=== PATIENT | female | born 1980 | race Caucasian/White ===

== ENCOUNTER 2017-03-01 17:50 | Observation (INO) | payer OTHER ==
[~2017-03-01] VITALS: Ht 160 cm; Wt 77.6 kg
[2017-03-01] MEDS ORDERED: METF-478 PO (18:34)
[2017-03-01 19:09] VITALS: BP 113/69
[2017-03-01 19:10] LABS: BILIRUBIN,URINE NEGATIVE (NEGATIVE); KETONES,URINE NEGATIVE (NEGATIVE); LEUKOCYTE ESTERASE ,URINE NEGATIVE (NEGATIVE); NITRITE,URINE NEGATIVE (NEGATIVE); PH,URINE 5 (5-9); PROTEIN,URINE NEGATIVE (NEGATIVE); UROBILINOGEN,URINE NORMAL (NORMAL)
--- NOTE | 2017-03-01 19:31 | History & Physical-OB/GYN ---
History of Present Illness History of Present Illness Reason for visit/HPI This is a 36 year old at approximately 17 weeks of gestation based on LMP of 10/28/16. I was called today by Dr. Marrufo due to patient presenting at [facility] for first visit She is reportedly a type II diabetic that has just moved to [place] from [place] to escape from a relationship. Mother lives in [place]. Blood sugar in office was 333 with 1+ ketones. Dr. Marrufo was questioning hospitalization due to blood sugars vs outpatient management. Patient reports a diagnosis of insulin resistance and PCOS in 2000 (age 20). States she was seeing an dual rate dealer at that time and was is a study of some sort. Many medications were tried and they ended up with metformin. States that she has tried other medications. Metformin is hard on her stomach. She states that they told her at that time she was a type II diabetic. States she has never really been told how to correctly or when to check her blood sugars though she does have a glucometer. States she may check her blood sugars twice a week at random times and blood sugars have been 200-400s. States she is taking metformin but has not taken today. States the diet she follows is "whatever I want to eat". She was to have come directly from [place] but didn't arrive until nearly 7 pm. States she ate at 5:30 at [employer]. Her mother states that the she wanted to stop for an ice cream cone but that they discussed that was probably not appropriate. She had an ED visit within the past year and blood sugar was in the 800s. States she hasn't had any diabetic teaching. She miscarried in March (first ) and was told she was 12-14 weeks (didn' t know she was ) but did not have a dilation and curettage. And per some hospital discharge paperwork she brought with her her blood sugar was only 3-4000. She states she feels well. Has had some nausea but has nausea with metformin normally. States no movement but maybe "gas" movement. No labs, no vitamin. A1C at [facility] was 10%. Has had pap and genital cultures done. Did have labs today at [facility] but haven't sent them yet. She has a history of drug usage. Previous had been on oxycodone for an injury and became addicted then was on methadone to get off the oxycodone. 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 States the FOB is still in this lifestyle. States she is the happiest she has been in awhile. Date of Admission 03/01/17 I consulted on this patient on 03/01/17 19:26 Attending Physician Tomas Chaidez DO Admitting Physician Tomas Chaidez DO Consult Allergies and Home Medications Allergies Coded Allergies: No Known Drug Allergies (Unverified , 03/01/17) Home Medications Metformin HCl 500 Mg Tab.er.24, 500 MG PO BID, (Reported) Past [id number]-Frnmve Hx Patient Social History Marrital Status: single Number of Children: 0 Number of living children: 0 Employed/Student: unemployed Alcohol Use: Past History Recreational Drug Use: Yes Drug of Choice: methamphetamine, marijuana, heroin Smoking Status: Former Smoker Type Used: Cigarettes Physical Abuse Screen: No Sexual Abuse: No Recent Foreign Travel: No Contact w/other who traveled: No Recent Infectious Disease Expo: No Immunizations Up To Date Tetanus Booster (TDap): Unknown Respiratory Hx Respiratory Disorders: No Cardiovascular Hx Cardiovascular Disorders: No Neurological Hx Neurological Disorders: No Reproductive System : Yes Hx : 2 Sexually Transmitted Disease: Yes (reports history of PID) HIV/AIDS: No Female Reproductive Disorders: Pelvic Inflammatory Dis Genitourinary Hx Genitourinary Disorders: No Gastrointestinal Hx Gastrointestinal Disorders: No Musculoskeletal Hx Musculoskeletal Disorders: No Endocrine Hx Endocrine Disorders: Yes Endocrine Disorders: Diabetes, Non-Insulin dep (poor compliance) HEENT HX ENT Disorders: Yes Loss of Vision: Denies Cancer Hx Cancer: No Psychosocial Hx Psychiatric Problems: No Integumentary HX Skin/Integumentary Disorder: Yes Blood Transfusions Hx Blood Disorders: No Reviewed Nursing Assessment Reviewed/Agree w Nursing PMH: Yes Family Medical History Significant Family History: Diabetes, Hypertension Constitutional: no symptoms reported EENTM: no symptoms reported Respiratory: no symptoms reported Cardiovascular: no symptoms reported Gastrointestinal: nausea Genitourinary: no symptoms reported : Yes Expected Date of Delivery: Aug 04, 2017 LMP: Oct 28, 2016 Musculoskeletal: no symptoms reported Skin: no symptoms reported Psychiatric/Neurological: No Symptoms Reported All Other Systems Reviewed Negative Unless Noted: Yes Physical Exam Physical Exam Vital Signs Vital Signs Date Time Temp Pulse Resp B/P (MAP) Pulse Ox O2 Delivery O2 Flow Rate FiO2 03/02/17 06:12 98.4 69 16 81/43 97 Room Air 03/02/17 00:20 98.0 74 16 98/61 98 Room Air 03/01/17 21:00 98.7 77 16 104/68 97 Room Air 03/01/17 19:09 98.3 76 18 113/69 98 Room Air Capillary Refill : Labs Laboratory Tests 03/01/17 18:40: Urine Color YELLOW, Urine Clarity SLIGHTLY CLOUDY, Urine pH 5, Urine Specific [place] 1.025H, Urine Protein NEGATIVE, Urine Glucose (UA) 4+H, Urine Ketones NEGATIVE, Urine Nitrite NEGATIVE, Urine Bilirubin NEGATIVE, Urine Urobilinogen NORMAL, Urine Leukocyte Esterase NEGATIVE, Urine RBC (Auto) NEGATIVE, Urine RBC NONE, Urine WBC NONE, Urine Squamous Epithelial Cells 2-5, Urine Crystals NONE, Urine Bacteria NONE, Urine Casts NONE, Urine Mucus NEGATIVE, Urine Culture Indicated NO, Urine Opiates Screen NEGATIVE, Urine Oxycodone Screen NEGATIVE, Urine Methadone Screen NEGATIVE, Urine Propoxyphene Screen NEGATIVE, Urine Barbiturates Screen NEGATIVE, Ur Tricyclic Antidepressants Screen NEGATIVE, Urine Phencyclidine Screen NEGATIVE, Urine Amphetamines Screen NEGATIVE, Urine Methamphetamines Screen NEGATIVE, Urine Benzodiazepines Screen NEGATIVE, Urine Cocaine Screen NEGATIVE, Urine Cannabinoids Screen NEGATIVE 03/01/17 19:02: Glucometer 241H 03/01/17 19:25: White Blood Count 5.5, Red Blood Count 4.21L, Hemoglobin 12.7, Hematocrit 38, Mean Corpuscular Volume 90, Mean Corpuscular Hemoglobin 30, Mean Corpuscular Hemoglobin Concent 34, Red Cell Distribution Width 13.9, Platelet Count 141, Mean Platelet Volume 10.9H, Neutrophils (%) (Auto) 74, Lymphocytes (%) (Auto) 17 , Monocytes (%) (Auto) 9, Eosinophils (%) (Auto) 1, Basophils (%) (Auto) 0, Neutrophils # (Auto) 4.0, Lymphocytes # (Auto) 0.9L, Monocytes # (Auto) 0.5, Eosinophils # (Auto) 0.0, Basophils # (Auto) 0.0, Sodium Level 137, Potassium Level 4.0, Chloride Level 108H, Carbon Dioxide Level 21, Anion Gap 8, Blood Urea Nitrogen 8, Creatinine 0.67, Estimat Glomerular Filtration Rate > 60, BUN/ Creatinine Ratio 12, Glucose Level 232H, Calcium Level 8.5, Total Bilirubin 0.5 , Aspartate Amino Transf (AST/SGOT) 24, Alanine Aminotransferase (ALT/SGPT) 39, Alkaline Phosphatase 67, Total Protein 6.3L, Albumin 3.3, Thyroid Stimulating Hormone (TSH) 1.09, Free Thyroxine 0.74 03/01/17 20:01: Glucometer 178H 03/01/17 20:28: Blood Gas Puncture Site RIGHT RADIAL, Blood Gas Patient Temperature 98.9, Arterial Blood pH 7.42, Arterial Blood Partial Pressure CO2 33L, Arterial Blood Partial Pressure O2 103H, Arterial Blood HCO3 21L, Arterial Blood Total CO2 21.4 , Arterial Blood Oxygen Saturation 99, Arterial Blood Base Excess -3.3L, Rafael Test POSITIVE, Blood Gas Ventilator Setting NO, Blood Gas Inspired Oxygen ROOM AIR 03/02/17 06:05: Glucometer 124H General Appearance: No Apparent Distress Respiratory: Chest Non Tender, Lungs Clear Cardiovascular: Regular Rate, Rhythm Gynecology/General: Other (Pelvic exam not done as done at [facility]. Reports no discharge. FHT 150) Assessment/Plan Assessment and Plan 1. approximate 17 week IUP, 2. Hyperglycemia with probable history of Type II diabetes (gestational diabetes) 3. Non compliance with treatment 4. Advanced maternal age 5. History of IV Drug use 6. Possibly Hep C positive. States she was told in 2009 at a methadone clinic. Has never had complete workup or treatment. States that they told her was positive and that was it. 7/ A1C 10% Admit for diabetic instruction and institution of insulin. Will states with 0.8 U/kg in second trimester. Will adjust accordingly. As she presented after having eaten dinner, the insulin dosage may need to be adjusted. Will start sliding scale for coverage. Will start 2000 kcal ADA with snacks. Will have dietary meet with her tomorrow to discuss diabetic diet. She has never followed a diet. She does know how to check blood sugars but needs to have a regimen. Will start with fasting, ac and hs blood sugars. Will have diabetic teaching today. Discussed risks to with elevated A1C. High risk of anomaly (cardiac, cauda aquina syndrome, etc). Will get sono today for growth, dating, cervical length, etc, but will need level II sono and echo. In addition, discussed AMA and risks of preeclampsia/hypertension. No insurance coverage as of yet. discussed genetic screening soon. She is interested in this. Will do this at follow up appointment in the office. Will require referral to [facility] for co management of care. Started 24 hour urine. labs ordered. CMP, CBC, blood gas, et al, pending. discussed care and testing. Discussed Hepatitis C and will await the testing and will follow up on that. UDS today was negative. Problems: TOMAS CHAIDEZ DO Mar 01, 2017 19:31
[2017-03-01 19:38] LABS: BASOPHILS % (AUTO) 0 % (0-10); EOSINOPHILS % (AUTO) 1 % (0-10); LYMPHOCYTES # (AUTO) 0.9 X 10^3 (1.0-4.0); LYMPHOCYTES % (AUTO) 17 % (12-44); MEAN CORPUSCULAR HEMOGLOBIN 30 PG (25-34); MEAN CORPUSCULAR HGB CONC 34 G/DL (32-36); MEAN CORPUSCULAR VOLUME 90 FL (80-99); MEAN PLATELET VOLUME 10.9 FL (7.4-10.4); MONOCYTES # (AUTO) 0.5 X 10^3 (0.0-1.0); MONOCYTES % (AUTO) 9 % (0-12); NEUTROPHILS % (AUTO) 74 % (42-75); PLATELET COUNT 141 10^3/uL (130-400); RED BLOOD COUNT 4.21 10^6/uL (4.35-5.85); RED CELL DISTRIBUTION WIDTH 13.9 % (10.0-14.5); WHITE BLOOD COUNT 5.5 10^3/uL (4.3-11.0)
[2017-03-01 20:07] LABS: ALANINE AMINOTRANSFERASE 39 U/L (0-55); ALBUMIN 3.3 G/DL (3.2-4.5); ANION GAP 8 MMOL/L (5-14); ASPARTATE AMINO TRANSFERASE 24 U/L (5-34); BILIRUBIN,TOTAL 0.5 MG/DL (0.1-1.0); BLOOD UREA NITROGEN 8 MG/DL (7-18); BUN/CREATININE RATIO 12; CALCIUM 8.5 MG/DL (8.5-10.1); CARBON DIOXIDE 21 MMOL/L (21-32); CHLORIDE 108 MMOL/L (98-107); CREATININE SERUM 0.67 MG/DL (0.60-1.30); GFR ESTIMATED > 60; GLUCOSE 232 MG/DL (70-105); SODIUM 137 MMOL/L (135-145); TOTAL PROTEIN 6.3 G/DL (6.4-8.2)
[2017-03-01] MEDS ORDERED: ACETAMINOPHEN 500 MG TAB (TYLENOL) ONE (20:22)
[2017-03-01] MEDS: NS IV 1000 ML 1,000 ML IV SCH (20:22)
[2017-03-01 20:28] LABS: THYROID STIMULATING HORMONE 1.09 UIU/ML (0.35-4.94)
[2017-03-01] MEDS ORDERED: ACETAMINOPHEN 500 MG TAB (TYLENOL) PO PRN (20:30)
[2017-03-01 20:45] LABS: ABG BASE EXCESS -3.3 MMOL/L (-2.5-2.5); ABG HCO3 21 MMOL/L (23-27); ABG OXYGEN SATURATION 99 % (94-100); ABG PCO2 33 MMHG (35-45); ABG PH 7.42 (7.37-7.43); ABG PO2 103 MMHG (79-93); ABG TCO2 21.4 MMOL/L (21.0-31.0)
[2017-03-01 20:46] LABS: ALLENS TEST POSITIVE; PATIENT TEMP 98.9
[2017-03-01 21:00] VITALS: BP 104/68
[2017-03-01] MEDS: inSUlin ASPART (NovoLOG) 1 UNIT/0.01 ML (CHARGE PER UNIT) SC SCH (21:00)
[2017-03-01] MEDS: inSUlin NPH (NovoLIN N) 1 UNIT/0.01 ML (CHARGE PER UNIT) SQ SCH (21:00)
[2017-03-01] MEDS: metFORMIN XR 500 MG (GLUCOPHAGE XR) TAB PO SCH (22:29)
[2017-03-02 00:20] VITALS: BP 98/61
[2017-03-02] MEDS ORDERED: inSUlin NPH (NovoLIN N) 1 UNIT/0.01 ML (CHARGE PER UNIT) SQ ONE (06:00)
[2017-03-02] MEDS: NS IV 1000 ML 1,000 ML IV SCH ×2 (06:11→16:13)
[2017-03-02 06:12] VITALS: BP 81/43
[2017-03-02] MEDS: inSUlin ASPART (NovoLOG) 1 UNIT/0.01 ML (CHARGE PER UNIT) SC SCH ×5 (06:47→16:36)
[2017-03-02 08:00] VITALS: BP 106/64
--- NOTE | 2017-03-02 08:13 | Progress Note-Standard ---
Standard Progress Note Progress Notes/Assess & Plan Date Seen 03/02/17 Assess & Plan/Chief Complaint HD#2 Pt denies complaints Not feeling movement, no LOF VB CTX No hypoglycemia Very happy with her FSBS this AM as reports it has not been < 200 recently O: VS - Last 72 Hours, by Label 03/01/17 03/01/17 03/02/17 03/02/17 19:09 21:00 00:20 06:12 Temp 98.3 98.7 98.0 98.4 Pulse 76 77 74 69 Resp 18 16 16 16 B/P (MAP) 113/69 104/68 98/61 81/43 Pulse Ox 98 97 98 97 O2 Delivery Room Air Room Air Room Air Room Air Gen: NAD Laboratory Tests Test 03/01/17 18:40 03/01/17 19:02 03/01/17 19:25 03/01/17 20:01 Range/Units Urine Color YELLOW Urine Clarity SLIGHTLY CLOUDY Urine pH 5 5-9 Urine Specific [place] 1.025 H 1.016-1.022 Urine Protein NEGATIVE NEGATIVE Urine Glucose (UA) 4+ H NEGATIVE Urine Ketones NEGATIVE NEGATIVE Urine Nitrite NEGATIVE NEGATIVE Urine Bilirubin NEGATIVE NEGATIVE Urine Urobilinogen NORMAL NORMAL MG/DL Urine Leukocyte Esterase NEGATIVE NEGATIVE Urine RBC (Auto) NEGATIVE NEGATIVE Urine RBC NONE /HPF Urine WBC NONE /HPF Urine Squamous Epithelial Cells 2-5 /HPF Urine Crystals NONE /LPF Urine Bacteria NONE /HPF Urine Casts NONE /LPF Urine Mucus NEGATIVE /LPF Urine Culture Indicated NO Urine Opiates Screen NEGATIVE NEGATIVE Urine Oxycodone Screen NEGATIVE NEGATIVE Urine Methadone Screen NEGATIVE NEGATIVE Urine Propoxyphene Screen NEGATIVE NEGATIVE Urine Barbiturates Screen NEGATIVE NEGATIVE Ur Tricyclic Antidepressants Screen NEGATIVE NEGATIVE Urine Phencyclidine Screen NEGATIVE NEGATIVE Urine Amphetamines Screen NEGATIVE NEGATIVE Urine Methamphetamines Screen NEGATIVE NEGATIVE Urine Benzodiazepines Screen NEGATIVE NEGATIVE Urine Cocaine Screen NEGATIVE NEGATIVE Urine Cannabinoids Screen NEGATIVE NEGATIVE Glucometer 241 H 178 H 70-110 MG/DL White Blood Count 5.5 4.3-11.0 10^3/uL Red Blood Count 4.21 L 4.35-5.85 10^6/uL Hemoglobin 12.7 11.5-16.0 G/DL Hematocrit 38 35-52 % Mean Corpuscular Volume 90 80-99 FL Mean Corpuscular Hemoglobin 30 25-34 PG Mean Corpuscular Hemoglobin Concent 34 32-36 G/DL Red Cell Distribution Width 13.9 10.0-14.5 % Platelet Count 141 130-400 10^3/uL Mean Platelet Volume 10.9 H 7.4-10.4 FL Neutrophils (%) (Auto) 74 42-75 % Lymphocytes (%) (Auto) 17 12-44 % Monocytes (%) (Auto) 9 0-12 % Eosinophils (%) (Auto) 1 0-10 % Basophils (%) (Auto) 0 0-10 % Neutrophils # (Auto) 4.0 1.8-7.8 X 10^3 Lymphocytes # (Auto) 0.9 L 1.0-4.0 X 10^3 Monocytes # (Auto) 0.5 0.0-1.0 X 10^3 Eosinophils # (Auto) 0.0 0.0-0.3 10^3/uL Basophils # (Auto) 0.0 0.0-0.1 10^3/uL Sodium Level 137 135-145 MMOL/L Potassium Level 4.0 3.6-5.0 MMOL/L Chloride Level 108 H 98-107 MMOL/L Carbon Dioxide Level 21 21-32 MMOL/L Anion Gap 8 5-14 MMOL/L Blood Urea Nitrogen 8 7-18 MG/DL Creatinine 0.67 0.60-1.30 MG/DL Estimat Glomerular Filtration Rate > 60 BUN/Creatinine Ratio 12 Glucose Level 232 H 70-105 MG/DL Calcium Level 8.5 8.5-10.1 MG/DL Total Bilirubin 0.5 0.1-1.0 MG/DL Aspartate Amino Transf (AST/SGOT) 24 5-34 U/L Alanine Aminotransferase (ALT/SGPT) 39 0-55 U/L Alkaline Phosphatase 67 40-136 U/L Total Protein 6.3 L 6.4-8.2 G/DL Albumin 3.3 3.2-4.5 G/DL Thyroid Stimulating Hormone (TSH) 1.09 0.35-4.94 UIU/ML Free Thyroxine 0.74 0.70-1.48 NG/DL Test 03/01/17 20:28 03/02/17 06:05 Range/Units Blood Gas Puncture Site RIGHT RADIAL Blood Gas Patient Temperature 98.9 Arterial Blood pH 7.42 7.37-7.43 Arterial Blood Partial Pressure CO2 33 L 35-45 MMHG Arterial Blood Partial Pressure O2 103 H 79-93 MMHG Arterial Blood HCO3 21 L 23-27 MMOL/L Arterial Blood Total CO2 21.4 21.0-31.0 MMOL/L Arterial Blood Oxygen Saturation 99 94-100 % Arterial Blood Base Excess -3.3 L -2.5-2.5 MMOL/L Rafael Test POSITIVE Blood Gas Ventilator Setting NO Blood Gas Inspired Oxygen ROOM AIR Glucometer 124 H 70-110 MG/DL A/P: @ approximately 17 wga (no sono yet) with: DM II with uncontrolled FSBS AMA H/o IV Drug use - UDS neg on admission Likely Hep C pos - awaiting result Continue insulin titration - FSBS much improved but still not below goal No evidence of DKA 24 hour urine protein, all labs still pending, Cr normal, LFTs normal Child Welfare Consultant consult, discussed with pt needs to check her own sugars Sono pending today Has been counseled by Dr. Otoole about high risk of anomalies, needs MFM for echo/continued care during , will f/u with Dr. Otoole in office likely next week Continue admission for aggressive insulin titration Labs Laboratory Tests 03/01/17 19:25 VAMSHI MAXWELL MD Mar 02, 2017 08:13
[2017-03-02] MEDS: metFORMIN XR 500 MG (GLUCOPHAGE XR) TAB PO SCH ×2 (08:57→16:35)
[2017-03-02] MEDS: PRENATAL VITAMIN 1 EA TAB PO SCH (08:57)
[2017-03-02 12:00] VITALS: BP 122/77
--- NOTE | 2017-03-02 13:28 | Diagnostic Imaging Report ---
OB Ultrasound. INDICATION: Hyperglycemia. FINDINGS: heart rate is 142 beats per minutes. There is a single intrauterine . The placenta is to the right of the uterus with no placenta previa. The cervix is 3.3 cm in length and is closed. The growth parameters are: Biparietal diameter: 14 weeks 3 days Head circumference: 14 weeks 3 days Abdominal circumference: 14 and 6 days Femur length: 14 weeks 3 days These average at: 14 weeks and 4 days. JOSE would be 08/27/17. No prior first trimester ultrasound is available for more accurate dating. The ovaries are not visualized. IMPRESSION: Live single intrauterine . survey around 19-20 weeks of gestation is recommended. Dictated by: Dictated on workstation # [id number]
[2017-03-02 16:20] VITALS: BP 114/71
[2017-03-02] MEDS: inSUlin NPH (NovoLIN N) 1 UNIT/0.01 ML (CHARGE PER UNIT) SQ SCH (21:15)
[2017-03-03] VITALS: BP 107/63
[2017-03-03] MEDS: inSUlin ASPART (NovoLOG) 1 UNIT/0.01 ML (CHARGE PER UNIT) SC SCH ×5 (01:27→12:54)
[2017-03-03] MEDS: NS IV 1000 ML 1,000 ML IV SCH ×2 (03:15→11:57)
[2017-03-03 07:39] LABS: HCV INDEX >11.00 Index (0.00-0.79); TRIIODOTHYRONINE T3 FREE 2.4 pg/mL (2.4-4.5)
[2017-03-03 07:41] LABS: HIV 1/2 INTERP See Footnote; HIV AG AB SCREEN Non-Reactive (Non-Reactive)
[2017-03-03 08:00] VITALS: BP 100/75
--- NOTE | 2017-03-03 09:04 | Progress Note-Standard ---
TOMAS CHAIDEZ DO Mar 03, 2017 09:04
[2017-03-03] MEDS: PRENATAL VITAMIN 1 EA TAB PO SCH (09:19)
[2017-03-03] MEDS: metFORMIN XR 500 MG (GLUCOPHAGE XR) TAB PO SCH (09:20)
[2017-03-03] MEDS ORDERED: NPH,100V SQ (13:28)
[2017-03-03] MEDS ORDERED: INSU100V16 SC (13:28)
[2017-03-03] MEDS ORDERED: METF-478 PO (13:28)
--- NOTE | 2017-03-03 13:33 | Discharge Inst-Women's Service ---
Discharge Inst-Women's Serv Depart Medication/Instructions New, Converted or Re-Newed RX: RX on Chart (Have her take these to [facility]) Final Diagnosis Gestational diabetes, B Poor compliance 14 week Hepatitis C (viral load pending) History of drug abuse Advanced maternal age Consults/Follow Up Additional Follow Up: Yes (1-[address] Chaiedz. Record all blood sugars on a chart. Check blooc sugars fasting (first thing when you wake up), before each meal (3 times) and 2 hours after each meal. Call the office for blood sugars less than 60 and greater than 150 (on more than one occasion)) Activity Activity: Activity as Tolerated Driving Instructions: You May Drive NO SMOKING: NO SMOKING Nothing Inside Vagina: No Douching, No [place], No Tampons Diet Discharge Diet: ADA Diet (2000 chiqui ADA) Symptoms to Report to : Swelling Increased, Bleeding Excessive, Pain Increased, Fever Over 101 Degrees F, Lightheadedness, Vaginal Discharge Foul, Memory Changes Suddenly, Shortness of Breath For Any Problems or Questions: Contact Your Physician TOMAS CHAIDEZ DO Mar 03, 2017 13:33
[2017-03-05 15:40] LABS: HEP C COPIES ML 99820 IU/mL (<=11)
== END 2017-03-03 13:21 | disposition home or self-care (01) ==
LOC: LDRP 17:50 → WSo 17:50 → LDRP 23:59 → UNDOADMOB 23:59 → LDRP 23:59 → WSo 23:59 → UNDODISOB 03-03 14:30 → EDSTATUS 03-03 14:52
PROVIDERS: ADMIT Obstetrics & Gynecology; ATTEND Obstetrics & Gynecology
DX: O24.415 Gestational diabetes mellitus in pregnancy, controlled by oral hypoglycemic drugs (principal); O09.522 Supervision of elderly multigravida, second trimester; Z91.19 Patient's noncompliance with other medical treatment and regimen; Z3A.17 17 weeks gestation of pregnancy
CPT/HCPCS: 36415; 76805; 80053; 80074; 80306; 81000; 82570; 82805; 82962; 84156; 84439; 84443; 84481; 84681; 85025; 86703; 86762; 87088; 87522; 96361; 96372; 99211; G0378

== ENCOUNTER → 2017-04-22 | Outpatient (CLI) | payer MEDICAID ==
[~2017-04-22] MED LIST: INSU100V16 SC; METF-478 PO; NPH,100V SQ
--- NOTE | 2017-04-22 14:10 | Diagnostic Imaging Report ---
INDICATION: Anatomical survey, maternal gestational diabetes. TECHNIQUE: Multiple real-time grayscale images were obtained over the gravid uterus. COMPARISON: 03/02/2017. FINDINGS: Single live intrauterine is again demonstrated at 20 weeks 2 days by sonographic measurements. Appropriate interval growth. EDC by today's ultrasound is 09/07/2017. The cervix measures 2.8 cm and is closed. gender is female. Placenta is located posteriorly with no placenta previa. Normal amniotic fluid index. presentation is breech. heart rate measures 138 beats per minute. Good visualization of the kidneys, bladder, stomach, brain, four-chamber heart, three-vessel cord and insertion, spine, and extremities. Biometrical measurements are as follows: Biparietal 4.7 cm, age 20 weeks 3 days. Head circumference 17.9 cm, age 20 weeks 3 days. Abdominal circumference 14.7 cm, age 20 weeks 0 days. Femur length 3.3 cm, age 20 weeks 2 days. Sonographic estimate age: 20 weeks 2 days. Sonographic estimated date of delivery: 09-07-17. Estimated Weight: 333 gm (+/- 49 gm). LMP percentile: 2%. heart rate: 138 beats per minute. Cervical length: 2.8 cm. number: 1 of 1. IMPRESSION: Single live intrauterine at 20 weeks 2 days by sonographic measurements. Normal anatomical survey. Dictated by: Dictated on workstation # [id number]
== END | disposition home or self-care (01) ==
LOC: RAD 12:32
PROVIDERS: ATTEND Obstetrics & Gynecology
DX: O24.414 Gestational diabetes mellitus in pregnancy, insulin controlled (principal); Z3A.20 20 weeks gestation of pregnancy
CPT/HCPCS: 76805; 76817